=== PATIENT | female | born 1970 | race Caucasian/White ===

== ENCOUNTER 2016-04-13 14:20 | Emergency (ER) | payer OTHER ==
[2016-04-13] MEDS ORDERED: IBUPROFEN 800 MG TABLET PO STA (15:47)
[2016-04-13] MEDS ORDERED: IBUPROFEN 800 MG TABLET PO ONE (16:01)
== END 2016-04-13 16:37 | disposition home or self-care (01) ==
DX: S20.212A Contusion of left front wall of thorax, initial encounter (principal); W01.0XXA Fall on same level from slipping, tripping and stumbling without subsequent striking against object, initial encounter; Y93.02 Activity, running; Y92.89 Other specified places as the place of occurrence of the external cause
CPT/HCPCS: 71101; 99283; A9270

== ENCOUNTER 2017-10-08 13:14 | Emergency (ER) | payer OTHER ==
[2017-10-08] MEDS ORDERED: SODIUM CHLORIDE 0.9% 1,000 ML IV ONE (13:28)
[2017-10-08] MEDS ORDERED: ONDANSETRON 4 MG/2 ML VIAL IVP STA (13:28)
[2017-10-08] MEDS ORDERED: KETOROLAC 60 MG/2 ML VIAL IVP STA (13:28)
--- NOTE | 2017-10-08 13:31 | ED Physician Documentation ---
PD HPI ABD PAIN - Stated complaint Stated Complaint: SIDE PX - Chief complaint Chief Complaint: Abd Pain - History obtained from History obtained from: Patient - History of Present Illness Timing - onset: Other (47-year-old woman with history of renal colic, has needed lithotripsy twice. Last kidney stone 3 years ago. She has had a week's worth of left flank pain that is nonradiating that became much worse today associated with nausea and vomiting. She denies gross hematuria, bowel or bladder complaints. No fevers. No other health problems.) Review of Systems Constitutional: denies: Fever, Chills Respiratory: denies: Dyspnea, Cough GI: reports: Nausea, Vomiting. 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 - Present Medications Home Medications: Ambulatory Orders Medication Instructions Recorded Confirmed Ibuprofen [Motrin] 800 mg PO Q8H PRN #30 tablet 04/13/16 Ibuprofen [Motrin] 800 mg PO Q8H PRN #30 tablet 10/08/17 Ondansetron HCl [Zofran] 4 mg PO Q6H PRN #10 tablet 10/08/17 Potassium Citrate [Potassium 10 meq PO BID #20 tablet.er 10/08/17 Citrate ER] - Allergies Allergies/Adverse Reactions: Allergies Allergy/AdvReac Type Severity Reaction Status Date / Time No Known Drug Allergies Allergy Verified 10/08/17 13:20 - Social History Does the pt smoke?: No Smoking Status: Never smoker Does the pt drink ETOH?: Yes Does the pt have substance abuse?: No - Family History Family history: reports: Non contributory - Immunizations Immunizations are current?: Yes - POLST Patient has POLST: No PD ED PE NORMAL - Vitals Vital signs reviewed: Yes - General General: No acute distress - HEENT HEENT: PERRL, EOMI - Neck Neck: Supple, no meningeal sign, No bony TTP - Cardiac Cardiac: RRR, No murmur - Respiratory Respiratory: No respiratory distress, Clear bilaterally - Abdomen Abdomen: Normal bowel sounds, Soft, Non tender - Back Back: No CVA TTP, No spinal TTP - Derm Derm: Normal color, Warm and dry - Extremities Extremities: No edema, No calf tenderness / cord - Neuro Neuro: Alert and oriented X 3, Normal speech - Psych Psych: Normal mood, Normal affect Results - Vitals Vitals: Vital Signs - 24 hr 10/08/17 10/08/17 13:16 15:26 Temperature 36.1 C L Heart Rate 77 64 Respiratory 20 16 Rate Blood Pressure 139/88 H 126/89 H O2 Saturation 100 100 Oxygen O2 Source Room air - Labs Labs: Laboratory Tests 10/08/17 10/08/17 10/08/17 13:20 13:40 13:40 WBC 4.3 L RBC 4.01 L Hgb 12.9 Hct 37.0 MCV 92.2 MCH 32.2 H MCHC 34.9 RDW 14.0 Plt Count 234 MPV 8.1 Neut # (Auto) 2.5 Lymph # (Auto) 1.4 L Pratt # (Auto) 0.3 Eos # (Auto) 0.0 Baso # (Auto) 0.0 Absolute Nucleated RBC 0.01 Nucleated RBC % 0.2 Sodium 132 L Potassium 3.2 L Chloride 96 L Carbon Dioxide 29 Anion Gap 7.0 BUN 17 Creatinine 0.6 Estimated GFR (MDRD) 106 Glucose 87 Calcium 8.9 Total Bilirubin 1.1 H AST 24 ALT 18 Alkaline Phosphatase 42 Total Protein 7.3 Albumin 4.5 Globulin 2.8 Albumin/Globulin Ratio 1.6 Lipase 41 Urine Color YELLOW Urine Clarity CLEAR Urine pH 6.5 Ur Specific [place] <=1.005 Urine Protein NEGATIVE Urine Glucose (UA) NEGATIVE Urine Ketones NEGATIVE Urine Occult Blood NEGATIVE Urine Nitrite NEGATIVE Urine Bilirubin NEGATIVE Urine Urobilinogen 0.2 (NORMAL) Ur Leukocyte Esterase SMALL H Urine RBC None Seen Urine WBC 6-10 H Ur Squamous Epith Cells MOD Squamous H Urine Bacteria Rare Ur Microscopic Review INDICATED Urine Culture Comments NOT INDICATED 10/08/17 15:10 WBC RBC Hgb Hct MCV MCH MCHC RDW Plt Count MPV Neut # (Auto) Lymph # (Auto) Pratt # (Auto) Eos # (Auto) Baso # (Auto) Absolute Nucleated RBC Nucleated RBC % Sodium Potassium Chloride Carbon Dioxide Anion Gap BUN Creatinine Estimated GFR (MDRD) Glucose Calcium Total Bilirubin AST ALT Alkaline Phosphatase Total Protein Albumin Globulin Albumin/Globulin Ratio Lipase Urine Color LIGHT YELLOW Urine Clarity CLEAR Urine pH 6.5 Ur Specific [place] <=1.005 Urine Protein NEGATIVE Urine Glucose (UA) NEGATIVE Urine Ketones NEGATIVE Urine Occult Blood NEGATIVE Urine Nitrite NEGATIVE Urine Bilirubin NEGATIVE Urine Urobilinogen 0.2 (NORMAL) Ur Leukocyte Esterase NEGATIVE Urine RBC Urine WBC Ur Squamous Epith Cells Urine Bacteria Ur Microscopic Review NOT INDICATED Urine Culture Comments NOT INDICATED - Rads (name of study) CT A/P Radiology: EMP read contemporaneously (Nephrolithiasis and diverticulosis without diverticulitis or ureterolithiasis.) PD MEDICAL DECISION MAKING - ED course ED course: 47-year-old woman with history and physical most consistent with renal colic, however imaging does not show evidence of this. Initial urinalysis was contaminated but the repeat was without skin cells and normal. She was feeling much better after Toradol and Zofran. - Sepsis Event Vital Signs: Vital Signs - 24 hr 10/08/17 10/08/17 13:16 15:26 Temperature 36.1 C L Heart Rate 77 64 Respiratory 20 16 Rate Blood Pressure 139/88 H 126/89 H O2 Saturation 100 100 Oxygen O2 Source Room air Departure - Departure Disposition: 01 Home, Self Care Clinical Impression: Hypokalemia, Left flank pain Abdominal pain Qualifiers: Abdominal location: unspecified location Qualified Code(s): R10.9 - Unspecified abdominal pain Condition: Good Record reviewed to determine appropriate education?: Yes Instructions: ED Abdominal Pain Unkn Cause Prescriptions: Ibuprofen [Motrin] 800 mg PO Q8H PRN #30 tablet PRN Reason: PAIN &/OR FEVER Ondansetron HCl [Zofran] 4 mg PO Q6H PRN #10 tablet PRN Reason: Nausea / Vomiting Potassium Citrate [Potassium Citrate ER] 10 meq PO BID #20 tablet.er Comments: Follow-up with your doctor in 1 week to recheck potassium and for follow-up. Return for any new or worsening symptoms. Your blood pressure was elevated today on check into the emergency department. This does not mean that you have hypertension, it is a common phenomenon to come to the emergency department and have elevated blood pressure. I recommend that you see your primary care physician within the week to have it rechecked when you are feeling better.
[2017-10-08 13:36] LABS: BILIRUBIN,URINE NEGATIVE (NEGATIVE); GLUCOSE, URINE (UA) NEGATIVE (NEGATIVE); KETONES,URINE (UA) NEGATIVE (NEGATIVE); LEUKOCYTE ESTERASE, URINE SMALL (NEGATIVE); NITRITE,URINE NEGATIVE (NEGATIVE); OCCULT BLOOD,URINE NEGATIVE (NEGATIVE); PH,URINE 6.5 PH (5.0-7.5); PROTEIN,URINE NEGATIVE (NEGATIVE); UROBILINOGEN,URINE 0.2 (NORMAL) E.U./dL (NORMAL)
[2017-10-08 13:40] LABS: CLARITY,URINE CLEAR (CLEAR)
[2017-10-08 13:58] LABS: BACTERIA,URINE Rare /HPF (None Seen); RBC,URINE None Seen /HPF (0-5); SQUAMOUS EPITHELIAL CELL,UR MOD Squamous (<= Few)
[2017-10-08 13:58] LABS: BASOPHILS % (AUTO) 0.7 %; HGB - HEMOGLOBIN 12.9 g/dL (12.0-16.0); LYMPHOCYTES # (AUTO) 1.4 10^3/uL (1.5-3.5); LYMPHOCYTES % (AUTO) 32.6 %; MEAN CORPUSCULAR HEMOGLOBIN 32.2 pg (27.0-31.0); MEAN CORPUSCULAR HGB CONC 34.9 g/dL (32.0-36.0); MEAN CORPUSCULAR VOLUME 92.2 fL (81.0-99.0); MEAN PLATELET VOLUME 8.1 fL (7.9-10.8); MONOCYTES # (AUTO) 0.3 10^3/uL (0.0-1.0); MONOCYTES % (AUTO) 6.6 %; NEUTROPHILS # (AUTO) 2.5 10^3/uL (1.5-6.6); NEUTROPHILS % (AUTO) 59.1 %; PLT - PLATELET COUNT 234 10^3/uL (130-450); RED BLOOD COUNT 4.01 10^6/uL (4.20-5.40); WHITE BLOOD COUNT 4.3 x10^3/uL (4.8-10.8)
[2017-10-08 14:14] LABS: ALBUMIN 4.5 g/dL (3.2-5.5); ALBUMIN/GLOBULIN RATIO 1.6 (1.0-2.2); BILIRUBIN,TOTAL 1.1 mg/dL (0.2-1.0); CALCIUM 8.9 mg/dL (8.5-10.3); CREATININE 0.6 mg/dL (0.4-1.0); TOTAL PROTEIN 7.3 g/dL (6.7-8.2)
--- NOTE | 2017-10-08 14:39 | CT Report ---
Procedure Date: 10/08/2017 Accession Number: [id number] / [id number] Procedure: CT - Abdomen/Pelvis W/O CPT Code: FULL RESULT: EXAM: CT ABDOMEN AND PELVIS WITHOUT CONTRAST. EXAM DATE: 10/08/2017 02:22 PM. CLINICAL HISTORY: Nephrolithiasis. Left flank pain. COMPARISONS: abdomen and pelvis 06/24/2006 4:42 AM. TECHNIQUE: Routine helical CT imaging was performed through the abdomen and pelvis. IV contrast: None. Enteric contrast: No. Reconstructions: Coronal and sagittal. In accordance with CT protocol optimization, one or more of the following dose reduction techniques were utilized for this exam: automated exposure control, adjustment of mA and/or KV based on patient size, or use of iterative reconstructive technique. FINDINGS: Lung Bases: Unremarkable. Liver: Normal. No masses. Gallbladder/Bile Ducts: Unremarkable. Spleen: Normal. Pancreas: Normal. Adrenal Glands: Normal. Kidneys: Right kidney and right ureter are normal. Single 5 mm stone in the inferior left renal calyx. Left kidney and left ureter otherwise normal. Peritoneal Cavity/Bowel: Diverticula of the colon. No free fluid, free air or adenopathy. No masses or acute inflammatory process. The appendix is well visualized and normal. Pelvic Organs: Normal. The bladder and visualized pelvic organs are within normal limits. Vasculature: No aneurysms or other significant abnormality. Bones: No significant abnormality. Other: None. IMPRESSION: 1. Left nephrolithiasis. No obstructive uropathy. 2. Colonic diverticulosis. 3. No radiographic explanation for this lady's presenting symptoms. RADIA
[2017-10-08 15:18] LABS: BILIRUBIN,URINE NEGATIVE (NEGATIVE); GLUCOSE, URINE (UA) NEGATIVE (NEGATIVE); KETONES,URINE (UA) NEGATIVE (NEGATIVE); LEUKOCYTE ESTERASE, URINE NEGATIVE (NEGATIVE); NITRITE,URINE NEGATIVE (NEGATIVE); OCCULT BLOOD,URINE NEGATIVE (NEGATIVE); PH,URINE 6.5 PH (5.0-7.5); PROTEIN,URINE NEGATIVE (NEGATIVE); UROBILINOGEN,URINE 0.2 (NORMAL) E.U./dL (NORMAL)
[2017-10-08 15:27] VITALS: BP 126/89
[2017-10-08 15:27] LABS: CLARITY,URINE CLEAR (CLEAR)
== END 2017-10-08 16:05 | disposition home or self-care (01) ==
LOC: ED 13:14
DX: E87.6 Hypokalemia (principal); R10.9 Unspecified abdominal pain
CPT/HCPCS: 36415; 74176; 80053; 81001; 81003; 83690; 85025; 87086; 96361; 96374; 96375; 99283

== ENCOUNTER 2018-11-27 06:57 | Outpatient (CLI) | payer OTHER ==
--- NOTE | 2018-11-28 03:28 | MRI Report ---
Reason: RT ARM PAIN Procedure Date: 11/27/2018 Accession Number: [id number] / [id number] Procedure: MRI - Cervical Spine W/O CPT Code: FULL RESULT: EXAM: MRI CERVICAL SPINE WITHOUT CONTRAST EXAM DATE: 11/27/2018 08:17 AM. CLINICAL HISTORY: RT ARM PAIN. COMPARISONS: CERVICAL SPINE W/O 04/07/2015 9:03 AM. TECHNIQUE: Multiplanar, multisequence T1-weighted and fluid-sensitive sequences of the cervical spine without contrast. Other: None. FINDINGS: Neurologic Structures: The visualized posterior fossa structures are unremarkable. No signal abnormality in the visualized spinal cord. Alignment: No scoliosis or spondylolisthesis. Bone Marrow: No gross fractures or bone lesions. No marrow edema. Interspace Levels/Facets: C1-C2: Unremarkable. C2-C3: Unremarkable. C3-C4: Unremarkable. C4-C5: Mild disk space narrowing. Disk/endplate osteophyte narrows the central canal with mild cord impingement, slightly more pronounced. More extensive disk space narrowing since the prior study. Foramina appear patent. C5-C6: Mild disk space narrowing. Disk/endplate osteophyte is eccentric to the left. Mild to moderate cord impingement, this appears unchanged. C6-C7: Mild disk space narrowing. Minimal disk/endplate osteophyte complex formation, eccentric to the left. The left-sided disk herniation seen on the prior study is no longer evident. C7-T1: Unremarkable. Musculature: Normal. No edema or fatty atrophy. Other: The paravertebral and prevertebral soft tissues are normal. IMPRESSION: 1. C4-C5: Mild disk space narrowing. Disk/endplate osteophyte narrows the central canal with mild cord impingement, slightly more pronounced. More extensive disk space narrowing since the prior study. Foramina appear patent. 2. C5-C6: Mild disk space narrowing. Disk/endplate osteophyte is eccentric to the left. Mild to moderate cord impingement, this appears unchanged. 3. C6-C7: Mild disk space narrowing. Minimal disk/endplate osteophyte complex formation, eccentric to the left. The left-sided disk herniation seen on the prior study is no longer evident. 4. Other disk spaces are unremarkable. 5. A right-sided disk herniation to explain the patient's symptoms is not seen. RADIA
== END 2018-11-27 06:58 | disposition home or self-care (01) ==
LOC: DI 06:57
PROVIDERS: ATTEND Family Medicine
DX: M79.601 Pain in right arm (principal); M48.02 Spinal stenosis, cervical region; M25.78 Osteophyte, vertebrae
CPT/HCPCS: 72141

== ENCOUNTER 2019-05-06 09:05 | Outpatient (CLI) | payer OTHER | END 2019-05-06 09:06 | disposition critical access hospital (66) | LOC: EMS 09:05 | PROVIDERS: ATTEND Surgery | DX: R42 Dizziness and giddiness (principal); R07.9 Chest pain, unspecified | CPT/HCPCS: A0425; A0427 ==

== ENCOUNTER 2019-05-06 09:22 | Emergency (ER) | payer OTHER ==
--- NOTE | 2019-05-06 09:29 | ED Physician Documentation ---
PD HPI SYNCOPE - Stated complaint Stated Complaint: NEAR SYNCOPE - History obtained from History obtained from: Patient, EMS - History of Present Illness Witnessed: Witnessed Timing - onset: Enter time, Today Preceding symptoms: No: Headache, Chest pain, Diaphoresis, Dyspnea Associated symptoms: No: Seizure, Headache Injury occurred: No: Fell, Head injury, Neck injury Treatment GRAPHIC EDITOR: Fluids Review of Systems Constitutional: reports: Myalgias, Fatigue. denies: Fever, Chills, Weight Loss Nose: denies: Rhinorrhea / runny nose, Congestion Throat: denies: Sore throat Cardiac: denies: Chest pain / pressure, Palpitations Respiratory: denies: Dyspnea, Cough GI: reports: Nausea. 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 - Present Medications Home Medications: Ambulatory Orders Medication Instructions Recorded Confirmed Ibuprofen [Motrin] 800 mg PO Q8H PRN #30 tablet 04/13/16 Ondansetron HCl [Zofran] 4 mg PO Q6H PRN #10 tablet 10/08/17 Potassium Citrate [Potassium 10 meq PO BID #20 tablet.er 10/08/17 Citrate ER] Amitriptyline [Elavil] 25 mg PO HS #20 tablet 05/06/19 Cyclobenzaprine [Flexeril] 10 mg Q8HR PRN 05/06/19 05/06/19 Hydrocodone/Acetaminophen [Dyke 1 each PO Q6H PRN #20 tablet 05/06/19 5-325 Tablet] dexAMETHasone [Decadron] 4 mg PO DAILY #7 tablet 05/06/19 - Allergies Allergies/Adverse Reactions: Allergies Allergy/AdvReac Type Severity Reaction Status Date / Time No Known Drug Allergies Allergy Verified 05/06/19 09:31 - Social History Does the pt smoke?: No Smoking Status: Never smoker Does the pt drink ETOH?: Yes Does the pt have substance abuse?: No - Immunizations Immunizations are current?: Yes - POLST Patient has POLST: No PD ED PE NORMAL - Vitals Vital signs reviewed: Yes - General General: Alert and oriented X 3, No acute distress, Well developed/nourished - HEENT HEENT: Ears normal, Moist mucous membranes, Pharynx benign - Neck Neck: Supple, no meningeal sign, No adenopathy - Cardiac Cardiac: RRR, No murmur - Respiratory Respiratory: Clear bilaterally - Abdomen Abdomen: Soft, Non tender - Derm Derm: Normal color, Warm and dry - Extremities Extremities: No tenderness to palpate, Normal ROM s pain, No edema, No calf tenderness / cord - Neuro Neuro: Alert and oriented X 3, No motor deficit, Normal speech Results - Vitals Vitals: Vital Signs - 24 hr 05/06/19 05/06/19 05/06/19 09:25 09:52 11:16 Temperature 37.3 C Heart Rate 76 71 75 Respiratory 16 16 16 Rate Blood Pressure 166/96 H 155/91 H 144/92 H O2 Saturation 100 100 97 05/06/19 13:00 Temperature Heart Rate 76 Respiratory 16 Rate Blood Pressure 133/92 H O2 Saturation 100 Oxygen O2 Source Room air - EKG (time done) 09:44 Rate: Rate (enter#) (70) Rhythm: NSR [place]: Normal Intervals: Normal ID QRS: Normal Ischemia: Normal ST segments. No: ST elevation c/w ischemia, ST depression - Labs Labs: Laboratory Tests 05/06/19 05/06/19 05/06/19 09:35 09:56 09:56 WBC 3.5 L RBC 4.14 L Hgb 13.1 Hct 39.1 MCV 94.4 MCH 31.6 H MCHC 33.5 RDW 13.0 Plt Count 203 MPV 10.0 Neut # (Auto) 2.1 Lymph # (Auto) 1.1 L Millard # (Auto) 0.2 Eos # (Auto) 0.1 Baso # (Auto) 0.0 Absolute Nucleated RBC 0.00 Nucleated RBC % 0.0 ESR Sodium 136 Potassium 3.6 Chloride 98 L Carbon Dioxide 30 Anion Gap 8.0 BUN 18 Creatinine 0.7 Estimated GFR (MDRD) 88 L Glucose 91 Calcium 8.8 Total Bilirubin 0.6 AST 25 ALT 20 Alkaline Phosphatase 49 Troponin I High Sens C-Reactive Protein Total Protein 7.2 Albumin 4.5 Globulin 2.7 Albumin/Globulin Ratio 1.7 Lipase 114 H TSH Ur Specific [place] <=1.005 Urine HCG, Qual NEGATIVE 05/06/19 05/06/19 05/06/19 09:56 09:56 09:56 WBC RBC Hgb Hct MCV MCH MCHC RDW Plt Count MPV Neut # (Auto) Lymph # (Auto) Millard # (Auto) Eos # (Auto) Baso # (Auto) Absolute Nucleated RBC Nucleated RBC % ESR 6 Sodium Potassium Chloride Carbon Dioxide Anion Gap BUN Creatinine Estimated GFR (MDRD) Glucose Calcium Total Bilirubin AST ALT Alkaline Phosphatase Troponin I High Sens < 2.3 L C-Reactive Protein Total Protein Albumin Globulin Albumin/Globulin Ratio Lipase TSH 2.64 Ur Specific [place] Urine HCG, Qual 05/06/19 09:56 WBC RBC Hgb Hct MCV MCH MCHC RDW Plt Count MPV Neut # (Auto) Lymph # (Auto) Millard # (Auto) Eos # (Auto) Baso # (Auto) Absolute Nucleated RBC Nucleated RBC % ESR Sodium Potassium Chloride Carbon Dioxide Anion Gap BUN Creatinine Estimated GFR (MDRD) Glucose Calcium Total Bilirubin AST ALT Alkaline Phosphatase Troponin I High Sens C-Reactive Protein < 1.0 Total Protein Albumin Globulin Albumin/Globulin Ratio Lipase TSH Ur Specific [place] Urine HCG, Qual - Rads (name of study) chest CT Radiology: Prelim report reviewed ( No acute process to account for the chest pain), See rad report PD MEDICAL DECISION MAKING - ED course Complexity details: reviewed old records, re-evaluated patient (improved and labs/CT did not show bovious cause of pains. ), considered differential, d/w patient Departure - Departure Disposition: 01 Home, Self Care Clinical Impression: Right-sided chest pain, Near syncope Condition: Stable Record reviewed to determine appropriate education?: Yes Instructions: ED Chest Pain Atypical Unkn Cause Follow-Up: Timo Rubin DO [Provider Admit Priv/Credential] - Prescriptions: Amitriptyline [Elavil] 25 mg PO HS #20 tablet dexAMETHasone [Decadron] 4 mg PO DAILY #7 tablet Hydrocodone/Acetaminophen [Dyke 5-325 Tablet] 1 each PO Q6H PRN #20 tablet PRN Reason: Pain Comments: Stay well-hydrated. Continue the naproxen twice daily as an anti-inflammatory. To that add Decadron steroid anti-inflammatory daily for 7 more days. Hold the cyclobenzaprine muscle relaxant since it was not really helping and it potentially may have contributed to the lightheadedness he felt today. Add Tylenol 650 mg 4 times a day or hydrocodone for worse pain. The does sound potentially like some nerve pain component and so we can add amitriptyline 25 mg low-dose at bedtime to see if that helps as well. Follow-up with your primary care for further evaluation, physical therapy, other testing. He can follow-up on the varicella-zoster virus test as well Discharge Date/Time: 05/06/19 13:28
[2019-05-06 10:05] LABS: BASOPHILS % (AUTO) 0.6 %; EOSINOPHILS # (AUTO) 0.1 10^3/uL (0.0-0.7); EOSINOPHILS % (AUTO) 1.4 %; HGB - HEMOGLOBIN 13.1 g/dL (12.0-16.0); LYMPHOCYTES # (AUTO) 1.1 10^3/uL (1.5-3.5); LYMPHOCYTES % (AUTO) 32.1 %; MEAN CORPUSCULAR HEMOGLOBIN 31.6 pg (27.0-31.0); MEAN CORPUSCULAR HGB CONC 33.5 g/dL (32.0-36.0); MEAN CORPUSCULAR VOLUME 94.4 fL (81.0-99.0); MONOCYTES # (AUTO) 0.2 10^3/uL (0.0-1.0); MONOCYTES % (AUTO) 5.7 %; NEUTROPHILS # (AUTO) 2.1 10^3/uL (1.5-6.6); NEUTROPHILS % (AUTO) 59.9 %; PLT - PLATELET COUNT 203 10^3/uL (130-450); RED BLOOD COUNT 4.14 10^6/uL (4.20-5.40); WHITE BLOOD COUNT 3.5 x10^3/uL (4.8-10.8)
[2019-05-06 10:09] LABS: HCG UR QUAL NEGATIVE
[2019-05-06] MEDS ORDERED: SODIUM CHLORIDE 0.9% 1,000 ML IV ONE (10:15)
[2019-05-06] MEDS ORDERED: KETOROLAC 30 MG/ML VIAL IVP STA (10:15)
[2019-05-06] MEDS ORDERED: HYDROmorphone 1 MG/ML CARPUJECT IVP STA (10:15)
[2019-05-06] MEDS ORDERED: DEXAMETHASONE 10 MG/ML VIAL IVP STA (10:18)
[2019-05-06] MEDS ORDERED: IOVERSOL 320 100 ML VIAL IVP ONE ×2 (10:24→11:31)
[2019-05-06 10:25] LABS: ALBUMIN 4.5 g/dL (3.2-5.5); ALBUMIN/GLOBULIN RATIO 1.7 (1.0-2.2); BILIRUBIN,TOTAL 0.6 mg/dL (0.2-1.0); CALCIUM 8.8 mg/dL (8.5-10.3); CREATININE 0.7 mg/dL (0.4-1.0); TOTAL PROTEIN 7.2 g/dL (6.7-8.2)
--- NOTE | 2019-05-06 11:30 | CT Report ---
Reason: right upper thoracic/chest pain x 1 month Procedure Date: 05/06/2019 Accession Number: [id number] / [id number] Procedure: CT - CHEST W CPT Code: Final Report FULL RESULT: EXAM: CT CHEST EXAM DATE: 05/06/2019 11:04 AM. CLINICAL HISTORY: Right upper thoracic/chest pain x 1 month. COMPARISONS: None. TECHNIQUE: Routine helical CT imaging was performed through the chest. IV contrast: 80 mL Optiray 320. Reconstructions: Coronal and sagittal. In accordance with CT protocol optimization, one or more of the following dose reduction techniques were utilized for this exam: automated exposure control, adjustment of mA and/or KV based on patient size, or use of iterative reconstructive technique. FINDINGS: Thyroid Gland: Normal as visualized. Lungs/Pleura: Minimal dependent atelectasis. No pulmonary nodule or mass. No focal infiltrate, pleural effusion or pneumothorax. Heart and Great Vessels: Heart size is normal. No pericardial effusion. The aorta and visualized central pulmonary arteries are unremarkable. Thoracic Lymph Nodes: No adenopathy. Bones: Minimal degenerative changes within the spine. No acute bony abnormality. Visualized Abdomen: Unremarkable. Other: None. IMPRESSION: No potential etiology detected for right chest pain. RADIA
[2019-05-06 13:28] VITALS: BP 133/92
[2019-05-10 23:05] LABS: VARICELLA ZOSTER VIRUS IGM 0.26
== END 2019-05-06 13:28 | disposition home or self-care (01) ==
LOC: EDUNIT# → ED 09:22
DX: R07.9 Chest pain, unspecified (principal); R55 Syncope and collapse; R11.0 Nausea; R53.83 Other fatigue
CPT/HCPCS: 36415; 71260; 81025; 83690; 84484; 85651; 86140; 86787; 93005; 96361; 96374; 96375; 99283; 99284; J1170; Q9967; 80053; 84443; 85025

== ENCOUNTER 2020-03-03 12:29 | Outpatient (CLI) | payer OTHER ==
--- NOTE | 2020-03-05 10:04 | MRI Report ---
PROCEDURE: Cervical Spine W/O INDICATIONS: CERVICAL REGION RADICULOPATHY, RT SH PAIN TECHNIQUE: Noncontrast sagittal T1 spin echo and T2 fast spin echo, sagittal STIR, foraminal oblique sagittal T2 fast spin echo, and axial gradient echo or T2 fast spin echo through the cervical spine. COMPARISON: 11/27/2018 FINDINGS: Image quality: Excellent. Alignment and Curvature: There is normal bony alignment. Bone Marrow: Marrow demonstrates normal overall signal. Spinal Cord: Visualized spinal cord has normal size and signal. No cerebellar tonsillar herniation. Paraspinous Soft Tissues: No paravertebral masses. Prevertebral soft tissues are normal in thicknes s. C2-C3: Unremarkable, no significant change. C3-C4: Minimal posterior disc osteophyte, no significant change. C4-C5: Mild broad-based disc osteophyte effacing anterior CSF causing mild central canal narrowing. Minimal progression of disc space narrowing. Slight progression of central canal narrowing. Mild righ t foraminal narrowing. C5-C6: Mild to moderate broad-based posterior disc osteophyte effacing anterior CSF and flattening t he cord shape, mildly progressed compared to the prior study. Mild left foraminal narrowing without s ignificant progression. C6-C7: Mild posterior disc osteophyte, with small broad-based disc bulge left of center, slightly pr ogressed compared to the prior study. Foramina are patent. C7-T1: Normal, unchanged IMPRESSION: 1. Mild progression of now moderate central canal narrowing at C4-5 and C5-6. 2. No significant focal neural foraminal narrowing. Reviewed by: Lety Valdivia MD on 03/05/2020 10:03 AM PST Approved by: Lety Valdivia MD on 03/05/2020 10:03 AM PST Station ID: [id number]
--- NOTE | 2020-03-05 10:07 | MRI Report ---
PROCEDURE: Shoulder RT W/O INDICATIONS: PAIN IN RT SHLDR TECHNIQUE: Noncontrast oblique coronal T2 fast spin echo with fat saturation, oblique sagittal T1 spin echo and T2 fast spin echo with fat saturation, axial T1 spin echo and T2 fast spin echo with fat saturation t hrough the shoulder. COMPARISON: None. FINDINGS: Image quality: Excellent. Rotator cuff: Tendinosis and low-grade articular and bursal surface partial-thickness tear involving distal supraspinatus at its insertion on humeral head is seen extending to musculotendinous junction. Distal infraspinatus tendinosis is also noted. Distal subscapularis tendinosis and low-grade intrasu bstance partial thickness tear is seen. No full-thickness rotator cuff tendon rupture.. No rotator c uff muscle atrophy on sagittal images. Bones and bursae: No bone marrow contusions or fractures. There is mild to moderate acromioclavicula r joint and glenohumeral joint osteoarthritis. Downward osteophyte formation is noted in acromioclavi cular joint depressing on musculotendinous junction of supraspinatus. The acromion demonstrates conve ntional anatomy, without an os acromiale. No pathologic subacromial/subdeltoid bursal fluid is prese nt. Capsule and soft tissues: In the absence of intra-articular contrast, the labrum and glenohumeral li gaments appear intact. The long head of the biceps tendon demonstrates normal location and morpholog y. The rotator interval appears normal, without fibrosis. The coracohumeral ligament is normal in t hickness. IMPRESSION: 1. Tendinosis and low-grade articular and bursal surface partial-thickness tear involving distal supr aspinatus at its insertion on humeral head extending to musculotendinous junction. Distal infraspinat us and subscapularis tendinosis. No full-thickness rotator cuff tendon rupture. 2. [id number] acromioclavicular joint and glenohumeral joint osteoarthritis. No fracture or dis location. No significant joint effusion or subacromial subdeltoid bursal fluid. 3. No gross focal labral tear. Reviewed by: Jensen Francisco MD on 03/05/2020 10:06 AM PST Approved by: Jensen Francisco MD on 03/05/2020 10:06 AM PST Station ID: [id number]
--- OUTSIDE RECORDS SUMMARY | 2020-03-07 01:51 | EXTERNAL MEDICAL SUMMARY RPT | Continuity of Care Document ---
:1970 Demographics Phone Unavailable Preferred Language Unknown Marital Status Unknown Mandaeism Affiliation Unknown Race Unknown Ethnic Group Unknown Author Organization [facility] Address [address] [place] [address] Phone Care Team Providers Name Role Phone KRAUSE Unavailable Unavailable Problems date description facility 2020-02-23 15:00 [facility] 2020-03-03 12:29 [facility] 2020-03-03 13:00 PAIN IN RIGHT SHOULDER [facility] Allergies date description facility [facility] LEVOFLOXACIN [facility] TIC[facility]OR [facility] PSEUDOEPHEDRINE HCL [facility] scooter Center NO KNOWN ENVIRONMENTAL ALLERGIES [facility] SULFA ANTIBIOTICS [facility] ALOE VERA [facility] SULFA (SULFONAMIDE ANTIBIOTICS) [facility] NO KNOWN ALLERGIES [facility] LATEX [facility] FLUOXETINE HCL [facility] CODEINE [facility] ACETAZOLAMIDE [facility] ALENDRONATE SODIUM [facility] CALCIUM CARBONATE [facility]DRONATE [facility] DICLOFENAC-MISOPROSTOL [facility] No Known Drug Allergies [facility] Social History date description facility [phone]
== END 2020-03-03 12:30 | disposition home or self-care (01) ==
LOC: DI 12:29
PROVIDERS: ATTEND Family Medicine
DX: M50.321 Other cervical disc degeneration at C4-C5 level (principal); M48.02 Spinal stenosis, cervical region; M75.111 Incomplete rotator cuff tear or rupture of right shoulder, not specified as traumatic; M75.81 Other shoulder lesions, right shoulder; M19.011 Primary osteoarthritis, right shoulder

== ENCOUNTER 2021-03-13 12:47 | Outpatient (CLI) | payer OTHER ==
--- NOTE | 2021-03-14 13:44 | Mammography Report ---
BILATERAL DIGITAL SCREENING MAMMOGRAM 3D/2D: 03/13/2021 CLINICAL: Routine screening. Comparison is made to exams dated: 08/11/2016 mammogram, 04/24/2014 mammogram, and 01/26/2013 mammogram - [facility]. There are scattered fibroglandular elements in both breasts. No significant masses, calcifications, or other findings are seen in either breast. There has been no significant interval change. IMPRESSION: NEGATIVE There is no mammographic evidence of malignancy. A 1 year screening mammogram is recommended. This exam was interpreted at Station ID: [id number]. NOTE: For mammograms, a report in lay terms will be sent to the patient. Approximately 15% of breast malignancies will not be visualized mammographically. In the management of a palpable breast mass, a negative mammogram must not discourage biopsy of a clinically suspicious lesion. Electronically Signed By: Eugene Ocasio acr/penrad:03/13/2021 13:22:26 ACR BI-RADS Category 1: Negative 3341F PARENCHYMAL PATTERN: (A) - The breast(s) demonstrate(s) scattered fibroglandular densities. BI-RADS CATEGORY: (1) - 1 RECOMMENDATION: (ANNUAL) - Recommend routine annual screening mammography. [id number] 1 year screening LATERALITY: (B)
== END 2021-03-13 12:48 | disposition home or self-care (01) ==
LOC: DI.N 12:47
DX: Z12.31 Encounter for screening mammogram for malignant neoplasm of breast (principal)

== ENCOUNTER 2022-12-18 09:04 | Emergency (ER) | payer OTHER ==
[2022-12-18 09:16] VITALS: O2SAT 100
--- NOTE | 2022-12-18 09:40 | XRAY Report ---
PROCEDURE: Chest 1 View X-Ray INDICATIONS: CP TECHNIQUE: One view of the chest was acquired. COMPARISON: None. FINDINGS: Surgical changes and devices: None. Lungs and pleura: No pleural effusions or pneumothorax. Lungs are clear. Mediastinum: Mediastinal contours appear normal. Heart size is normal. Bones and chest wall: No suspicious bony lesions. Overlying soft tissues appear unremarkable. IMPRESSION: No acute cardiopulmonary process. Reviewed by: Michel Guaman MD on 12/18/2022 9:38 AM PDT Approved by: Michel Guaman MD on 12/18/2022 9:38 AM PDT Station ID: [id number]
[2022-12-18 09:49] LABS: EOSINOPHILS % (AUTO) 0.5 %; HCT - HEMATOCRIT 40.9 % (37.0-47.0); HGB - HEMOGLOBIN 13.5 g/dL (12.0-16.0); LYMPHOCYTES # (AUTO) 1.2 10^3/uL (1.5-3.5); LYMPHOCYTES % (AUTO) 30.6 %; MEAN CORPUSCULAR HEMOGLOBIN 30.8 pg (27.0-31.0); MEAN CORPUSCULAR VOLUME 93.4 fL (81.0-99.0); MEAN PLATELET VOLUME 10.1 fL (7.9-10.8); MONOCYTES # (AUTO) 0.3 10^3/uL (0.0-1.0); NEUTROPHILS # (AUTO) 2.5 10^3/uL (1.5-6.6); NEUTROPHILS % (AUTO) 60.9 %; PLT - PLATELET COUNT 281 10^3/uL (130-450); RED BLOOD COUNT 4.38 10^6/uL (4.20-5.40); RED CELL DISTRIBUTION WIDTH 12.8 % (12.0-15.0)
[2022-12-18 10:08] LABS: ALBUMIN 4.7 g/dL (3.2-5.5); ALBUMIN/GLOBULIN RATIO 1.9 (1.0-2.2); ALKALINE PHOSPHATASE 61 IU/L (42-121); ALT ALANINE AMINOTRANSFERASE 16 IU/L (10-60); AST ASPARTATE AMINOTRANSFERASE 17 IU/L (10-42); BILIRUBIN,TOTAL 0.8 mg/dL (0.2-1.0); BUN - BLOOD UREA NITROGEN 22 mg/dL (6-20); CALCIUM 9.7 mg/dL (8.5-10.3); CARBON DIOXIDE - CO2 30 mmol/L (21-32); CHLORIDE 102 mmol/L (101-111); CREATININE 0.8 mg/dL (0.6-1.3); GFR - MDRD 75 (>89); GLUCOSE 92 mg/dL (74-104); LIPASE 48 U/L (11-82); POTASSIUM 3.9 mmol/L (3.5-4.5); SODIUM 140 mmol/L (135-145); TOTAL PROTEIN 7.2 g/dL (6.4-8.9)
[2022-12-18 10:44] LABS: TROPONIN I HIGH SENSITIVITY < 2.3 ng/L (2.3-14.8)
--- NOTE | 2022-12-18 11:13 | ED Physician Documentation ---
PD HPI CHEST PAIN - Stated complaint Stated Complaint: SOA,CHEST TIGHT,HIGH BP - Chief complaint Chief Complaint: Cardiac - History obtained from History obtained from: Patient - Additional information Additional information: Patient is a 52-year-old female with no significant prior medical history presenting for right-sided chest pain which feels like a tightness in her right chest and right upper back for the past 5 days. Patient states that the pain is constant. Patient states that she went for an 8 mile hike on Thursday without any difficulty. She says that standing and sitting make her pain worse and it feels better when she lays down.Pain has been constant. She denies feeling short of air. No nausea or vomiting or dizziness. She has been checking her blood pressure and has noted some elevated readings recently. She does not have a history of hypertension. Also denies a history of diabetes, hyperlipidemia, known coronary artery disease or early coronary artery disease in family members. No prior history of PE or DVT. No recent travel or immobilization. 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: Endometrial ablation - Present Medications Home Medications: Ambulatory Orders Medication Instructions Recorded Confirmed Ibuprofen [Motrin] 800 mg PO Q8H PRN #30 tablet 04/13/16 Potassium Citrate [Potassium 10 meq PO BID #20 tablet.er 10/08/17 Citrate ER] ondansetron HCL [Zofran] 4 mg PO Q6H PRN #10 tablet 10/08/17 Amitriptyline [Elavil] 25 mg PO HS #20 tablet 05/06/19 Cyclobenzaprine [Flexeril] 10 mg Q8HR PRN 05/06/19 05/06/19 Hydrocodone/Acetaminophen [[place] 1 each PO Q6H PRN #20 tablet 05/06/19 5-325 Tablet] dexAMETHasone [Decadron] 4 mg PO DAILY #7 tablet 05/06/19 Cetirizine HCl/Pseudoephedrine 1 each PO BID PRN #30 ea 10/14/21 [Zyrtec-D Tablet] - Allergies Allergies/Adverse Reactions: Allergies Allergy/AdvReac Type Severity Reaction Status Date / Time No Known Drug Allergies Allergy Verified 12/18/22 09:14 - Social History Does the pt smoke?: No Smoking Status: Never smoker Does the pt drink ETOH?: Yes Does the pt have substance abuse?: No - Immunizations Immunizations are current?: Yes - POLST Patient has POLST: No PD ED PE NORMAL - General General: Alert and oriented X 3, No acute distress, Well developed/nourished - HEENT HEENT: Atraumatic - Neck Neck: Supple, no meningeal sign - Cardiac Cardiac: RRR, No murmur, Strong equal pulses, Other (Tenderness to right anterior chest wall as well as right upper thoracic region with no bruising, rash or crepitus) - Respiratory Respiratory: No respiratory distress, Clear bilaterally - Abdomen Abdomen: Soft, Non tender, Non distended - Derm Derm: Warm and dry - Extremities Extremities: No edema, No calf tenderness / cord - Neuro Neuro: Normal speech Results - Vitals Vitals: Vital Signs - 24 hr 12/18/22 12/18/22 12/18/22 09:11 09:41 10:16 Temperature 36.7 C Heart Rate 67 69 66 Respiratory 16 18 16 Rate Blood Pressure 147/93 H 143/92 H O2 Saturation 100 100 100 12/18/22 12/18/22 10:41 11:10 Temperature Heart Rate 73 69 Respiratory 14 20 Rate Blood Pressure 141/89 H 152/82 H O2 Saturation 100 100 Oxygen O2 Source Room air - EKG (time done) 0926 EKG releavant findings:: EKG personally interpreted by author of this note. Relevant findings are: Rate 64, normal sinus rhythm, no STEMI, QTc 450, no prior for comparison - Labs Labs: Laboratory Tests 12/18/22 12/18/22 12/18/22 09:40 09:40 09:40 WBC 4.0 L RBC 4.38 Hgb 13.5 Hct 40.9 MCV 93.4 MCH 30.8 MCHC 33.0 RDW 12.8 Plt Count 281 MPV 10.1 Neut # (Auto) 2.5 Lymph # (Auto) 1.2 L [place] # (Auto) 0.3 Eos # (Auto) 0.0 Baso # (Auto) 0.0 Absolute Nucleated RBC 0.00 Nucleated RBC % 0.0 D-Dimer 200.2 Sodium 140 Potassium 3.9 Chloride 102 Carbon Dioxide 30 Anion Gap 8.0 BUN 22 H Creatinine 0.8 Estimated GFR (MDRD) 75 L Glucose 92 Calcium 9.7 Total Bilirubin 0.8 AST 17 ALT 16 Alkaline Phosphatase 61 Troponin I High Sens < 2.3 L Total Protein 7.2 Albumin 4.7 Globulin 2.5 Albumin/Globulin Ratio 1.9 Lipase 48 PD Medical Decision Making - ED course Complexity details: reviewed results, re-evaluated patient, d/w patient ED course: Patient is a 52-year-old presenting for evaluation of chest pain that has been present for the past 5 days. Pain has been constant. She has no known risk factors for coronary artery disease. EKG does not show signs of acute ischemia. She does have some reproducible tenderness on exam. Labs including high- sensitivity troponin and D-dimer were obtained and reviewed and without significant findings. Troponin is negative in the setting of pain for 5 days wh ich has been constant. Therefore I feel ACS is highly unlikely. D-dimer is also within normal limits so feel PE Is also unlikely. Pain is not migratory to suggest a dissection. Chest x-ray which I reviewed it does not show any significant abnormalities. Discussed need for close follow-up with primary care provider as well as concerning symptoms to return for. Departure - Departure Disposition: 01 Home, Self Care Clinical Impression: Chest pain, Elevated blood pressure reading Condition: Stable Instructions: ED Chest Pain Atypical Unkn Cause Follow-Up: [facility] [Provider Group] Comments: The exact cause for your chest pain at this time is unclear but your labs are reassuring. The marker for signs of a heart attack as well as a blood clot in your body are both negative. Your chest x-ray is clear. I would recommend close follow-up with your primary care provider as you may need further testing. I would also recommend close follow-up to have your blood pressure rechecked as it was higher than what you usually run. Please return to the emergency department if you develop any worsening symptoms. Forms: PCP List Discharge Date/Time: 12/18/22 11:19
[2022-12-18 11:18] VITALS: BP 152/82
== END 2022-12-18 11:19 | disposition home or self-care (01) ==
LOC: ED 09:04
DX: R07.89 Other chest pain (principal); R03.0 Elevated blood-pressure reading, without diagnosis of hypertension; Z79.899 Other long term (current) drug therapy
CPT/HCPCS: 36415; 80053; 83690; 84484; 85025; 85379; 93005; 99283; 99284

== ENCOUNTER 2023-07-08 07:16 | Outpatient (CLI) | payer OTHER ==
[2023-07-08 12:48] LABS: ALBUMIN 4.5 g/dL (3.2-5.5); ALBUMIN/GLOBULIN RATIO 1.6 (1.0-2.2); ALKALINE PHOSPHATASE 62 IU/L (42-121); ALT ALANINE AMINOTRANSFERASE 20 IU/L (10-60); AST ASPARTATE AMINOTRANSFERASE 21 IU/L (10-42); BILIRUBIN,TOTAL 0.9 mg/dL (0.2-1.0); BUN - BLOOD UREA NITROGEN 24 mg/dL (6-20); CALCIUM 9.8 mg/dL (8.5-10.3); CARBON DIOXIDE - CO2 32 mmol/L (21-32); CHLORIDE 101 mmol/L (101-111); CHOL/HDL RATIO 4.3 (<4.4); CHOLESTEROL 311 mg/dL; CREATININE 0.8 mg/dL (0.6-1.3); GFR - MDRD 74 (>89); GLUCOSE 89 mg/dL (74-104); HDL CHOLESTEROL 73 mg/dL; LDL CHOLESTEROL,CALCULATED 220 mg/dL; SODIUM 137 mmol/L (135-145); TOTAL PROTEIN 7.3 g/dL (6.4-8.9); TRIGLYCERIDES 89 mg/dL (48-352); VLDL CHOLESTEROL 18 mg/dL
[2023-07-08 12:57] LABS: THYROID STIMULATING HORMONE 1.47 uIU/mL (0.34-5.60)
[2023-07-08 13:06] LABS: ESTIMATED AVERAGE GLUCOSE 114 mg/dL (70-100); HEMOGLOBIN A1c% 5.6 % (4.27-6.07)
== END 2023-07-08 07:17 | disposition home or self-care (01) ==
LOC: LAB.N 07:16
PROVIDERS: ATTEND Family Medicine
DX: E78.5 Hyperlipidemia, unspecified (principal); F41.8 Other specified anxiety disorders; Z78.0 Asymptomatic menopausal state
CPT/HCPCS: 36415; 80053; 80061; 83036; 83721; 84443; 85025

== ENCOUNTER 2023-11-06 08:16 | Outpatient (CLI) | payer OTHER ==
--- NOTE | 2023-11-06 10:45 | Mammography Report ---
BILATERAL DIGITAL SCREENING MAMMOGRAM 3D/2D: 11/06/2023 CLINICAL: Routine screening. Comparison is made to exams dated: 03/13/2021 mammogram - [facility], 08/11/2016 [facility], and 04/24/2014 mammogram - [facility]. There are scattered areas of fibroglandular density (category b / 25%-50% glandular tissue). No significant masses, calcifications, or other findings are seen in either breast. There has been no significant interval change. IMPRESSION: NEGATIVE There is no mammographic evidence of malignancy. A 1 year screening mammogram is recommended. Based on the Tyrer Cuzick model (a risk assessment model) the patient's lifetime risk is 6.5% and her 10 year risk is 1.9%. According to the ACR, ACS, and NCCN guidelines, an annual breast MRI exam jordan g with mammogram is recommended if the patient's lifetime risk is 20% or greater. This exam was interpreted at Station ID: [id number]. NOTE: For mammograms, a report in lay terms will be sent to the patient. Approximately 15% of breast malignancies will not be visualized mammographically. In the management of a palpable breast mass, a negative mammogram must not discourage biopsy of a clinically suspicious lesion. Electronically Signed By: Barbara Sun M.D., Ph.D. eb/penrad:11/06/2023 09:35:57 ACR BI-RADS Category 1: Negative 3341F PARENCHYMAL PATTERN: (A) - The breast(s) demonstrate(s) scattered fibroglandular densities. BI-RADS CATEGORY: (1) - 1 RECOMMENDATION: (ANNUAL) - Recommend routine annual screening mammography. [id number] 1 year screening LATERALITY: (B)
== END 2023-11-06 08:17 | disposition home or self-care (01) ==
LOC: DI 08:16
DX: Z12.31 Encounter for screening mammogram for malignant neoplasm of breast (principal)

== ENCOUNTER 2023-11-06 08:32 | Outpatient (CLI) | payer OTHER ==
[2023-11-06 09:04] LABS: CALCIUM 9.8 mg/dL (8.5-10.3); CREATININE 0.8 mg/dL (0.6-1.3); POTASSIUM 4.2 mmol/L (3.5-4.5)
== END 2023-11-06 08:33 | disposition home or self-care (01) ==
LOC: LAB 08:32
PROVIDERS: ATTEND Family Medicine
DX: I10 Essential (primary) hypertension (principal); Z78.0 Asymptomatic menopausal state
CPT/HCPCS: 36415; 80048; 83001; 83002